=== PATIENT | female | born 1955 | race Hispanic/Latino ===

== ENCOUNTER 2024-06-28 15:29 | Inpatient (IN) | payer SELFPAY ==
[~2024-06-28] VITALS: Ht 157.5 cm; Wt 110.0 kg
[2024-06-28 16:04] LABS: ABG BASE EXCESS -8.9 mmol/L (-2.0-3.0); ABG HCO3 16.3 mmol/L (21.0-28.0); ABG OXYGEN SATURATION 84.8 % (95.0-99.0); ABG PCO2 33 mmHg (32-45); ABG PH 7.305 (7.35-7.450); PO2, ARTERIAL BG 53.2 mmHg (83.0-108.0); VENT MODE, BG RA (ROOM AIR)
[2024-06-28 16:14] LABS: BASOPHILS # (AUTO) 0.13 K/uL (0.00-0.20); BASOPHILS % (AUTO) 0.8 % (0.0-5.0); EOSINOPHILS # (AUTO) 0.02 K/uL (0.00-0.70); EOSINOPHILS % (AUTO) 0.1 % (0.0-8.0); HEMATOCRIT 33.7 % (36-48); IMMATURE GRANULOCYTE ABSOLUTE 0.06 K/uL (0-1); LYMPHOCYTES # (AUTO) 0.6 K/uL (1.0-4.8); LYMPHOCYTES % (AUTO) 3.6 % (21.0-51.0); MEAN CORPUSCULAR HEMOGLOBIN 26.8 pg (27.0-33.0); MEAN CORPUSCULAR HGB CONC 29.7 g/dL (32.0-36.0); MEAN CORPUSCULAR VOLUME 90.3 fL (79-99); MONOCYTES # (AUTO) 0.4 K/uL (0.1-1.0); MONOCYTES % (AUTO) 2.3 % (3.0-13.0); NEUTROPHILS # (AUTO) 15.1 K/uL (1.8-7.7); NEUTROPHILS % (AUTO) 92.8 % (40.0-77.0); PLATELET COUNT (AUTO) 76 K/uL (130-400); RED BLOOD CELL COUNT(AUTO) 3.73 MIL/uL (4.00-5.50); RED CELL DISTRIBUTION WIDTH 18.1 % (11.0-15.5); WHITE BLOOD COUNT (AUTO) 16.2 K/uL (4.8-10.8)
[2024-06-28 16:25] LABS: CREATININE 2.3 mg/dL (0.5-1.0); POTASSIUM 4.9 mmol/L (3.5-5.1)
[2024-06-28 16:25] LABS: COVID19 (SARS ANTIGEN RAPID) PRESUMPTIVE NEGATIVE (NEGATIVE); INFLUENZA TYPE A Negative For Type A (NEGATIVE); INFLUENZA TYPE B Negative For Type B (NEGATIVE)
[2024-06-28 16:30] LABS: ALBUMIN 1.6 g/dL (3.5-5.0); BILIRUBIN,TOTAL 0.8 mg/dL (0.2-1.0); TOTAL PROTEIN, SERUM 9.1 g/dL (6.0-8.3)
[2024-06-28] MEDS: [UNRECOGNIZED DRUG - OTHER] IV ONE (16:45)
[2024-06-28 17:22] LABS: APPEARANCE,URINE CLOUDY (CLEAR); BILIRUBIN,URINE NEGATIVE (NEGATIVE); COLOR,URINE YELLOW (YELLOW); GLUCOSE, URINE (UA) 30 mg/dL (NEGATIVE); KETONES,URINE 5 mg/dL (NEGATIVE); LEUKOCYTE ESTERASE ,URINE 25 Leu/uL (NEGATIVE); NITRATE,URINE NEGATIVE (NEGATIVE); OCCULT BLOOD,URINE NEGATIVE (NEGATIVE); PROTEIN,URINE 30 mg/dL (NEGATIVE)
[2024-06-28 17:40] LABS: BACTERIA,URINE Rare /HPF (None Seen); SQUAMOUS EPITHELIAL CELL,UR Many /HPF (0-2)
[2024-06-28 17:41] LABS: MUCUS,URINE Rare LPF (None Seen)
[2024-06-28] MEDS: ceFEPime HCL 2 GM VIAL IVPB SCH (18:24)
[2024-06-28] MEDS ORDERED: hydrALAZine 20MG/ML VIAL IV PRN (20:00)
[2024-06-28] MEDS ORDERED: acetaMINOPHEN 650 MG SUPPOSITORY RC PRN (20:00)
[2024-06-28] MEDS ORDERED: DOCUSATE SODIUM 100 MG CAP PO PRN (20:00)
[2024-06-28 20:05] VITALS: PULSE 103; RESP 22
[2024-06-28 20:08] VITALS: PULSE 103; RESP 22; O2SAT 93
[2024-06-28] MEDS: DOXYCYCLINE 100MG+NS 250ML 250 ML IV SCH (20:22)
[2024-06-28] MEDS: FUROSEMIDE 40MG VIAL IV SCH (20:22)
[2024-06-28] MEDS: IpraTROPium 0.5 MG/2.5 ML INH IH SCH (20:30)
[2024-06-28] MEDS: ALBUTEROL 0.083% 2.5 MG/3 ML INH IH SCH (20:30)
[2024-06-28] MEDS: INSULIN HUMULIN R 100 UNIT/ML 3ML SQ SCH (21:00)
[2024-06-28 21:05] VITALS: PULSE 104; RESP 22
[2024-06-28] MEDS: SOLU-MEDROL 40MG VIAL IVP SCH (21:16)
[2024-06-28] MEDS: FAMOTIDINE 20MG TAB PO SCH (21:16)
[2024-06-28] MEDS: SOLU-MEDROL 125MG VIAL IM ONE (21:24)
[2024-06-28 21:45] VITALS: PULSE 104; RESP 23; O2SAT 96
[2024-06-28 22:10] LABS: ABG BASE EXCESS -8.4 mmol/L (-2.0-3.0); ABG HCO3 18.1 mmol/L (21.0-28.0); ABG OXYGEN SATURATION 96.7 % (95.0-99.0); ABG PCO2 41 mmHg (32-45); ABG PH 7.262 (7.35-7.450); CARBON MONOXIDE 0.4; HHb 3.3; PO2, ARTERIAL BG 92.5 mmHg (83.0-108.0)
[2024-06-28] MEDS ORDERED: NOREPINEPHRINE BITARTRATE 32 MG in 0.9% NACL 250ML 250 ML IV SCH (23:30)
[2024-06-29] VITALS (94 sets, daily range): BP systolic 90–152; BP diastolic 37–99; PULSE 92–106; RESP 18–32; O2SAT 95–99
[2024-06-29] MEDS: BUDESONIDE 0.5 MG/2 ML INH IH SCH (01:14)
[2024-06-29] MEDS: acetylCYSTeine 20% 200MG/ML 4ML VIAL IH SCH (01:49)
[2024-06-29 04:52] LABS: BASOPHILS # (AUTO) 0.07 K/uL (0.00-0.20); BASOPHILS % (AUTO) 0.6 % (0.0-5.0); EOSINOPHILS # (AUTO) 0.01 K/uL (0.00-0.70); EOSINOPHILS % (AUTO) 0.1 % (0.0-8.0); HEMATOCRIT 32.1 % (36-48); IMMATURE GRANULOCYTE ABSOLUTE 0.07 K/uL (0-1); LYMPHOCYTES # (AUTO) 0.5 K/uL (1.0-4.8); LYMPHOCYTES % (AUTO) 4.1 % (21.0-51.0); MEAN CORPUSCULAR HEMOGLOBIN 26.9 pg (27.0-33.0); MEAN CORPUSCULAR HGB CONC 29.9 g/dL (32.0-36.0); MEAN CORPUSCULAR VOLUME 89.9 fL (79-99); MONOCYTES # (AUTO) 0.2 K/uL (0.1-1.0); MONOCYTES % (AUTO) 1.7 % (3.0-13.0); NEUTROPHILS # (AUTO) 11.2 K/uL (1.8-7.7); NEUTROPHILS % (AUTO) 92.9 % (40.0-77.0); PLATELET COUNT (AUTO) 68 K/uL (130-400); RED BLOOD CELL COUNT(AUTO) 3.57 MIL/uL (4.00-5.50); RED CELL DISTRIBUTION WIDTH 17.9 % (11.0-15.5); WHITE BLOOD COUNT (AUTO) 12.1 K/uL (4.8-10.8)
[2024-06-29 05:07] LABS: CREATININE 1.7 mg/dL (0.5-1.0); MAGNESIUM 1.7 mg/dL (1.80-2.40); PHOSPHORUS 5.2 mg/dL (2.5-4.9); POTASSIUM 5.5 mmol/L (3.5-5.1)
[2024-06-29] MEDS: HEPARIN 5,000 UNIT VIAL SQ SCH (05:18)
[2024-06-29] MEDS: CEFTRIAXONE 2GM VIAL IVPB SCH (07:31)
[2024-06-29] MEDS ORDERED: ENOXAPARIN SODIUM 40 MG/0.4 ML SYRINGE SQ SCH (09:00)
[2024-06-29] MEDS: NA ZIRCON CYCLOSIL(LOKELMA 10GM) PO ONE (11:50)
[2024-06-29] MEDS: INSULIN GLARGINE 100 UNITS/ML 10 ML VIAL SQ SCH (22:02)
[2024-06-30] VITALS (17 sets, daily range): BP systolic 102–130; BP diastolic 53–90; PULSE 87–104; RESP 15–28; O2SAT 94–97
[2024-06-30 03:45] LABS: BASOPHILS # (AUTO) 0.04 K/uL (0.00-0.20); BASOPHILS % (AUTO) 0.4 % (0.0-5.0); IMMATURE GRANULOCYTE ABSOLUTE 0.09 K/uL (0-1); LYMPHOCYTES # (AUTO) 0.7 K/uL (1.0-4.8); LYMPHOCYTES % (AUTO) 8.2 % (21.0-51.0); MEAN CORPUSCULAR HEMOGLOBIN 26.9 pg (27.0-33.0); MEAN CORPUSCULAR VOLUME 86.8 fL (79-99); MONOCYTES # (AUTO) 0.3 K/uL (0.1-1.0); MONOCYTES % (AUTO) 3.7 % (3.0-13.0); NEUTROPHILS # (AUTO) 7.8 K/uL (1.8-7.7); NEUTROPHILS % (AUTO) 86.7 % (40.0-77.0); PLATELET COUNT (AUTO) 75 K/uL (130-400); RED BLOOD CELL COUNT(AUTO) 3.34 MIL/uL (4.00-5.50); RED CELL DISTRIBUTION WIDTH 17.8 % (11.0-15.5)
[2024-06-30 04:00] LABS: ALBUMIN 1.3 g/dL (3.5-5.0); BILIRUBIN,TOTAL 0.4 mg/dL (0.2-1.0); CREATININE 1.4 mg/dL (0.5-1.0); MAGNESIUM 2.1 mg/dL (1.80-2.40); POTASSIUM 4.1 mmol/L (3.5-5.1); TOTAL PROTEIN, SERUM 7.9 g/dL (6.0-8.3)
[2024-06-30 04:25] LABS: HEMOGLOBIN A1C 7.4 % (4.0-6.0)
[2024-06-30] MEDS: LACTULOSE 20 GM/30 ML UDCUP PO PRN (12:54)
[2024-06-30] MEDS: GUAIFENESIN SUGAR-FREE 100 MG/5 ML UDCUP PO PRN (12:54)
[2024-06-30] MEDS: SOLU-MEDROL 40MG VIAL IVP SCH ×2 (15:30→20:19)
[2024-06-30 16:43] LABS: CHOLESTEROL 72 mg/dL (<200); HDL CHOLESTEROL 12 mg/dL (35-85); LDL DIRECT 46 mg/dL (0-99); TRIGLYCERIDES 97 mg/dL (30-200)
[2024-06-30] MEDS: ONDANSETRON 4MG INJ IVP PRN (20:15)
[2024-06-30] MEDS: METOPROLOL TARTRATE 25 MG TAB PO SCH (20:20)
[2024-06-30] MEDS: INSULIN HUMULIN R 100 UNIT/ML 3ML SQ ONE (22:48)
[2024-07-01] VITALS (12 sets, daily range): BP systolic 113–133; BP diastolic 56–68; PULSE 66–86; RESP 18–21; O2SAT 94–97
[2024-07-01] MEDS: 0.9% NACL 500ML IV.SOLN 500 ML IV ONE (01:20)
[2024-07-01 04:12] LABS: BASOPHILS # (AUTO) 0.01 K/uL (0.00-0.20); BASOPHILS % (AUTO) 0.3 % (0.0-5.0); HEMATOCRIT 28.6 % (36-48); IMMATURE GRANULOCYTE ABSOLUTE 0.04 K/uL (0-1); LYMPHOCYTES # (AUTO) 0.6 K/uL (1.0-4.8); MEAN CORPUSCULAR HGB CONC 31.1 g/dL (32.0-36.0); MEAN CORPUSCULAR VOLUME 86.7 fL (79-99); MONOCYTES # (AUTO) 0.4 K/uL (0.1-1.0); MONOCYTES % (AUTO) 10.7 % (3.0-13.0); NEUTROPHILS # (AUTO) 2.7 K/uL (1.8-7.7); NEUTROPHILS % (AUTO) 72.9 % (40.0-77.0); PLATELET COUNT (AUTO) 63 K/uL (130-400); RED CELL DISTRIBUTION WIDTH 17.8 % (11.0-15.5); WHITE BLOOD COUNT (AUTO) 3.7 K/uL (4.8-10.8)
[2024-07-01 04:30] LABS: ALBUMIN 1.4 g/dL (3.5-5.0); BILIRUBIN,TOTAL 0.4 mg/dL (0.2-1.0); CREATININE 1.1 mg/dL (0.5-1.0); MAGNESIUM 1.9 mg/dL (1.80-2.40)
[2024-07-01] MEDS: INSULIN HUMULIN R 100 UNIT/ML 3ML SQ SCH (06:37)
[2024-07-01] MEDS: FUROSEMIDE 40 MG TABLET PO SCH (08:58)
[2024-07-01] MEDS: INSULIN GLARGINE 100 UNITS/ML 10 ML VIAL SQ SCH (09:05)
[2024-07-01] MEDS ORDERED: PIOG15TA66 PO (16:48)
[2024-07-01] MEDS: PREDNISONE 20 MG TABLET PO SCH (21:06)
[2024-07-02] VITALS (13 sets, daily range): BP systolic 108–142; BP diastolic 43–76; PULSE 68–80; RESP 15–22; O2SAT 94–100
[2024-07-02] MEDS: ZOLPidem TARTrate 5 MG TAB PO ONE (01:26)
[2024-07-02 03:45] LABS: BASOPHILS # (AUTO) 0.01 K/uL (0.00-0.20); BASOPHILS % (AUTO) 0.3 % (0.0-5.0); HEMATOCRIT 29.6 % (36-48); IMMATURE GRANULOCYTE ABSOLUTE 0.03 K/uL (0-1); LYMPHOCYTES # (AUTO) 0.6 K/uL (1.0-4.8); LYMPHOCYTES % (AUTO) 17.4 % (21.0-51.0); MEAN CORPUSCULAR HEMOGLOBIN 26.6 pg (27.0-33.0); MEAN CORPUSCULAR HGB CONC 30.1 g/dL (32.0-36.0); MEAN CORPUSCULAR VOLUME 88.6 fL (79-99); MONOCYTES # (AUTO) 0.5 K/uL (0.1-1.0); MONOCYTES % (AUTO) 13.7 % (3.0-13.0); NEUTROPHILS # (AUTO) 2.4 K/uL (1.8-7.7); NEUTROPHILS % (AUTO) 67.7 % (40.0-77.0); PLATELET COUNT (AUTO) 57 K/uL (130-400); RED BLOOD CELL COUNT(AUTO) 3.34 MIL/uL (4.00-5.50); RED CELL DISTRIBUTION WIDTH 17.2 % (11.0-15.5); WHITE BLOOD COUNT (AUTO) 3.5 K/uL (4.8-10.8)
[2024-07-02 04:00] LABS: ALBUMIN 1.3 g/dL (3.5-5.0); BILIRUBIN,TOTAL 0.4 mg/dL (0.2-1.0); CREATININE 0.9 mg/dL (0.5-1.0); MAGNESIUM 1.8 mg/dL (1.80-2.40); POTASSIUM 3.8 mmol/L (3.5-5.1); TOTAL PROTEIN, SERUM 7.4 g/dL (6.0-8.3)
[2024-07-02] MEDS: MAGNESIUM 2GM PREMIX 50ML 50 ML IV PRN (05:13)
[2024-07-02] MEDS: PREDNISONE 10 MG TABLET PO SCH (08:42)
[2024-07-02] MEDS: FUROSEMIDE 20MG VIAL IV ONE (08:42)
[2024-07-02] MEDS: KCL 20 MEQ ERTAB PO ONE ×2 (08:55→11:32)
[2024-07-02] MEDS ORDERED: POTASSIUM CHLORIDE 10% ELIXIR 20 MEQ/15 ML UDCUP PO PRN (12:00)
[2024-07-02] MEDS ORDERED: POTASSIUM CHLORIDE 20MEQ/100ML 100 ML IV PRN (12:00)
[2024-07-02] MEDS: acetaMINOPHEN 325 MG TAB PO PRN (14:20)
[2024-07-02] MEDS: ZOLPidem TARTrate 5 MG TAB PO SCH (21:01)
[2024-07-03] VITALS (10 sets, daily range): BP systolic 114–129; BP diastolic 58–66; PULSE 70–80; RESP 18–22; O2SAT 95–98
[2024-07-03 03:57] LABS: BASOPHILS # (AUTO) 0.01 K/uL (0.00-0.20); BASOPHILS % (AUTO) 0.2 % (0.0-5.0); EOSINOPHILS # (AUTO) 0.02 K/uL (0.00-0.70); EOSINOPHILS % (AUTO) 0.4 % (0.0-8.0); HEMATOCRIT 32.4 % (36-48); IMMATURE GRANULOCYTE ABSOLUTE 0.05 K/uL (0-1); LYMPHOCYTES % (AUTO) 20.4 % (21.0-51.0); MEAN CORPUSCULAR HEMOGLOBIN 26.8 pg (27.0-33.0); MEAN CORPUSCULAR HGB CONC 30.2 g/dL (32.0-36.0); MEAN CORPUSCULAR VOLUME 88.5 fL (79-99); MONOCYTES # (AUTO) 0.5 K/uL (0.1-1.0); MONOCYTES % (AUTO) 10.5 % (3.0-13.0); NEUTROPHILS # (AUTO) 3.1 K/uL (1.8-7.7); NEUTROPHILS % (AUTO) 67.4 % (40.0-77.0); PLATELET COUNT (AUTO) 73 K/uL (130-400); RED BLOOD CELL COUNT(AUTO) 3.66 MIL/uL (4.00-5.50); RED CELL DISTRIBUTION WIDTH 17.2 % (11.0-15.5); WHITE BLOOD COUNT (AUTO) 4.7 K/uL (4.8-10.8)
[2024-07-03 04:13] LABS: INR 1.48 (0.85-1.15); PROTHROMBIN TIME 15.5 SEC (9.6-11.6)
[2024-07-03 04:33] LABS: ALBUMIN 1.3 g/dL (3.5-5.0); BILIRUBIN,TOTAL 0.7 mg/dL (0.2-1.0); CREATININE 0.7 mg/dL (0.5-1.0); POTASSIUM 3.8 mmol/L (3.5-5.1); TOTAL PROTEIN, SERUM 7.1 g/dL (6.0-8.3)
[2024-07-03 04:41] LABS: HIV 1&2 ANTIBODY Non-Reactive (Negative); HIV-1 p24 Antigen Non-Reactive (Negative)
[2024-07-03 05:04] LABS: ERYTHROCYTE SEDIMENTATION RATE 110 MM/HR (0-30)
[2024-07-03] MEDS: KCL 20 MEQ ERTAB PO PRN (05:26)
[2024-07-03] MEDS ORDERED: METF-444 PO (14:04)
[2024-07-03] MEDS ORDERED: FURO40TA7 PO (14:04)
[2024-07-03] MEDS ORDERED: FERS325 PO (14:04)
[2024-07-03] MEDS ORDERED: METO25 PO (14:04)
[2024-07-03] MEDS ORDERED: LEVO750T68 PO (14:05)
== END 2024-07-03 17:15 | disposition home or self-care (01) | DRG 871 ==
LOC: EDH 15:29 → EDHIP 15:30 → 2BH 06-29 00:20 → 2DH 06-30 02:04
PROVIDERS: ADMIT Internal Medicine; ATTEND Internal Medicine
PROC: 5A09357 Assistance with Respiratory Ventilation, Less than 24 Consecutive Hours, Continuous Positive Airway Pressure (ICD-10-PCS; principal; 2024-06-28)
PROC: 5A09357 Assistance with Respiratory Ventilation, Less than 24 Consecutive Hours, Continuous Positive Airway Pressure (ICD-10-PCS; 2024-06-29)
PROC: 5A09357 Assistance with Respiratory Ventilation, Less than 24 Consecutive Hours, Continuous Positive Airway Pressure (ICD-10-PCS; 2024-06-30)
PROC: 5A09357 Assistance with Respiratory Ventilation, Less than 24 Consecutive Hours, Continuous Positive Airway Pressure (ICD-10-PCS; 2024-07-01)
PROC: 5A09357 Assistance with Respiratory Ventilation, Less than 24 Consecutive Hours, Continuous Positive Airway Pressure (ICD-10-PCS; 2024-07-02)
PROC: 5A09357 Assistance with Respiratory Ventilation, Less than 24 Consecutive Hours, Continuous Positive Airway Pressure (ICD-10-PCS; 2024-07-03)
DX: A40.3 Sepsis due to Streptococcus pneumoniae (principal); I50.33 Acute on chronic diastolic (congestive) heart failure; J10.00 Influenza due to other identified influenza virus with unspecified type of pneumonia; J96.01 Acute respiratory failure with hypoxia; R65.20 Severe sepsis without septic shock; J15.9 Unspecified bacterial pneumonia; N17.9 Acute kidney failure, unspecified; E87.21 Acute metabolic acidosis; I13.0 Hypertensive heart and chronic kidney disease with heart failure and stage 1 through stage 4 chronic kidney disease, or unspecified chronic kidney disease; N30.00 Acute cystitis without hematuria; Z16.29 Resistance to other single specified antibiotic; D61.818 Other pancytopenia; J98.11 Atelectasis; Z20.822 Contact with and (suspected) exposure to COVID-19; I07.1 Rheumatic tricuspid insufficiency; D69.6 Thrombocytopenia, unspecified; E88.09 Other disorders of plasma-protein metabolism, not elsewhere classified; E78.5 Hyperlipidemia, unspecified; K80.20 Calculus of gallbladder without cholecystitis without obstruction; N18.9 Chronic kidney disease, unspecified; E11.22 Type 2 diabetes mellitus with diabetic chronic kidney disease
CPT/HCPCS: 36415; 36600; 71045; 71250; 78582; 80048; 80053; 80061; 81001; 82306; 82435; 82607; 82728; 82803; 82947; 82948; 83036; 83540; 83550; 83605; 83735; 83880; 84100; 84132; 84145; 84295; 84484; 85018; 85025; 85378; 85610; 85651; 86038; 86215; 86235; 86701; 87040; 87086; 87186; 87390; 87426; 87449; 87804; 87880; 92610; 93005; 93306; 93356; 93970; 94640; 94660; 94664; 94667; 94668; 99291; A6250; A9540; A9558; G0378; J0692; J0696; J1644; J1815; J1940; J2405; J2919; J3475; J3490; J7030; J7512; J7608